=== PATIENT | female | born 1975 | race African-American/Black ===

== ENCOUNTER 2023-09-13 12:34 | Outpatient (CLI) | payer BC | END 2023-09-13 12:35 | disposition home or self-care (01) | LOC: CSHMRI 12:34 | PROVIDERS: ATTEND Neurological Surgery | DX: H93.19 Tinnitus, unspecified ear (principal); I72.9 Aneurysm of unspecified site; M54.16 Radiculopathy, lumbar region; Z95.828 Presence of other vascular implants and grafts | CPT/HCPCS: 70544; 70551; 72148 ==

== ENCOUNTER 2023-10-25 14:24 | Outpatient (CLI) | payer BC | END 2023-10-25 14:25 | disposition home or self-care (01) | LOC: CSHULT 14:24 | PROVIDERS: ATTEND Neurological Surgery | DX: H93.19 Tinnitus, unspecified ear (principal) | CPT/HCPCS: 93880 ==